=== PATIENT | male | born 1945 | race Caucasian/White ===

== ENCOUNTER → 2016-09-01 | Outpatient (CLI) | payer OTHER ==
--- NOTE | 2016-09-01 10:40 | DIAGNOSTIC IMAGING REPORT ---
[facility]UB CLINICAL HISTORY: N20.0 [id number] COMPARISON STUDY: 04/27/2014 FINDINGS: There is a punctate lower pole left renal calculus. There is a 3 mm mid to lower pole right renal calculus. Additional punctate calculi are suspected bilaterally. There is no pathologic bowel dilatation. IMPRESSION: 1. Bilateral nephrolithiasis 2. No evidence of pathologic bowel dilatation Electronically signed by: Juan Humphrey M.D. 09/01/2016 10:37 AM Dictated Date/Time: 09/01/2016 10:36 AM
--- NOTE | 2016-09-06 12:51 | CODING QUERY MEDICAL NECESSITY ---
SUPPORTING DIAGNOSIS NEEDED A supporting diagnosis is required for the test/procedure performed on this patient in order for us to be reimbursed by the patient's insurance. Please provide a supporting diagnosis for the following test/procedure listed below next to the test name along with your signature. *If there is no additional diagnosis for this patient that would support the following test/procedure please document that below next to the test/procedure. Test(s)/Procedure(s) that require a supporting diagnosis: DOS 09/01 * PSA DIAGNOSIS: Provider Signature: Date: Thank you Elle Tejada [facility] Information [facility] Once completed, please kindly fax back to [phone] For questions please call [phone]
== END | disposition home or self-care (01) ==
LOC: C.RAD 10:07
PROVIDERS: ATTEND Urology
DX: N20.0 Calculus of kidney (principal); N40.1 Benign prostatic hyperplasia with lower urinary tract symptoms

== ENCOUNTER → 2016-12-04 | Outpatient (CLI) | payer OTHER ==
[2016-12-04 12:46] LABS: BLOOD UREA NITROGEN 19 mg/dl (7-18); BUN/CREATININE RATIO 16.9 (10-20)
[2016-12-04 13:01] LABS: FREE PSA 0.68 ng/ml
--- NOTE | 2017-01-02 06:35 | CODING QUERY MEDICAL NECESSITY ---
CQSUPPORTING DIAGNOSIS NEEDED A supporting diagnosis is required for the test/procedure performed on this patient in order for us to be reimbursed by the patient's insurance. Please provide a supporting diagnosis for the following test/procedure listed below next to the test name along with your signature. *If there is no additional diagnosis for this patient that would support the following test/procedure please document that below next to the test/procedure. Test(s)/Procedure(s) that require a supporting diagnosis: DOS 12/04/16 PROSTATE SPECIFIC (PSA) TEST Provider Signature: Date: Thank you Iris Dixon [facility] Information Management Once completed, please kindly fax back to [phone] For questions please call [phone]
== END | disposition home or self-care (01) ==
LOC: C.LAB 09:56
PROVIDERS: ATTEND Urology
DX: N52.9 Male erectile dysfunction, unspecified (principal); N40.1 Benign prostatic hyperplasia with lower urinary tract symptoms